=== PATIENT | male | born 1990 ===

== ENCOUNTER 2022-04-02 14:27 | Emergency (ER) | payer OTHER, SELFPAY ==
[2022-04-02 14:40] VITALS: BP 113/73; PULSE 91; RESP 16; TEMP 35.9; O2SAT 100
--- NOTE | 2022-04-02 14:45 | PC.NURSE ---
upon initial exam was not in room. left without being seen.
== END 2022-04-02 14:47 | disposition left against medical advice (07) ==
LOC: EXPCOLL 14:32
PROVIDERS: Emergency Provider Nurse Practitioner Family
DX: Z53.21 Procedure and treatment not carried out due to patient leaving prior to being seen by health care provider (principal)
CPT/HCPCS: 99199